=== PATIENT | male | born 1990 | race Caucasian/White ===

== ENCOUNTER 2021-10-22 15:00 | Emergency (ER) | payer SELFPAY ==
[~2021-10-22] VITALS: Ht 175.3 cm; Wt 79.5 kg
[2021-10-22 15:24] VITALS: BP 122/85; PULSE 76; TEMP 98.2
[2021-10-23] MEDS ORDERED: BACTRIM DS 8001 TAB PO (07:45)
== END 2021-10-22 17:06 | disposition left against medical advice (07) ==
LOC: COL.ER 15:00
DX: L02.212 Cutaneous abscess of back [any part, except buttock and flank] (principal)

== ENCOUNTER 2021-10-23 07:15 | Emergency (ER) | payer SELFPAY ==
[~2021-10-23] VITALS: Ht 175.3 cm; Wt 79.5 kg
[2021-10-23 07:27] VITALS: BP 122/74; PULSE 69; TEMP 98
[2021-10-23] MEDS ORDERED: BACTRIM DS 8001 TAB PO (07:45)
== END 2021-10-23 07:57 | disposition home or self-care (01) ==
LOC: COL.ER 07:15
DX: H66.42 Suppurative otitis media, unspecified, left ear (principal); F17.210 Nicotine dependence, cigarettes, uncomplicated